=== PATIENT | female | born 1990 | race Caucasian/White ===

== ENCOUNTER 2022-11-07 14:38 | Emergency (ER) | payer MEDICAID, OTHER ==
[~2022-11-07] VITALS: Ht 170.2 cm; Wt 117.0 kg
[2022-11-07 16:10] LABS: Basophils # (auto) 0.1 10 ^3/uL (0-0.2); Basophils % (auto) 0.5 % (0.0-2.0); Eosinophils # (auto) 0.3 10 ^3/uL (0-0.8); Eosinophils % (auto) 2.8 % (0.0-7.0); Hematocrit 41.6 % (36.0-46.0); Hemoglobin 13.8 g/dL (12.2-16.2); Lymphocytes # (auto) 2.8 10 ^3/uL (0.4-5.4); Lymphocytes % (auto) 24.5 % (10.0-50.0); Mean Corpuscular Hemoglobin 30.5 pg (28.0-32.0); Mean Corpuscular Hgb Conc. 33.2 g/dL (32.0-36.0); Mean Corpuscular Volume 91.8 fL (80.0-100.0); Monocytes # (auto) 0.6 10 ^3/uL (0-1.3); Monocytes % (auto) 5.7 % (0.0-12.0); Neutrophils # (auto) 7.6 10 ^3/uL (1.6-8.6); Neutrophils % (auto) 66.5 % (37.0-80.0); Nucleated Red Blood Cells % 0.1 %; Red Blood Cells 4.54 10^6/uL (4.0-5.20); Red Cell Distribution Width 12.6 % (11.8-14.3); White Blood Cell 11.4 10^3/uL (4.4-10.8)
[2022-11-07 16:28] LABS: Calcium 9.2 mg/dL (8.5-10.1); Potassium 4.1 mmol/L (3.5-5.1)
[2022-11-07 16:31] LABS: Bilirubin, Total 0.4 mg/dL (0.2-1.0); Total Protein 6.6 g/dL (6.4-8.2)
[2022-11-07 18:04] VITALS: BP 125/66
[2022-11-07 20:41] LABS: Urine Bacteria FEW /hpf (None Seen); Urine Blood Negative /uL (Negative); Urine Specific Gravity 1.017 (1.001-1.035); Urine WBC 1 /hpf (0 - 5)
== END 2022-11-07 18:16 | disposition home or self-care (01) ==
LOC: ER 14:38
DX: Z32.01 Encounter for pregnancy test, result positive (principal); R10.2 Pelvic and perineal pain
CPT/HCPCS: 36415; 76801; 80053; 81001; 81025; 84702; 85025

== ENCOUNTER 2023-01-17 05:27 | Emergency (ER) | payer MEDICAID ==
[~2023-01-17] VITALS: Ht 170.2 cm; Wt 118.2 kg
[2023-01-17] MEDS ORDERED: IBUPROFEN 800 MG TAB PO ONE (06:30)
[2023-01-17] MEDS ORDERED: IBUP-1454 PO (07:23)
[2023-01-17] MEDS ORDERED: CYCL-839 PO (07:23)
[2023-01-17 07:31] VITALS: BP 107/51
== END 2023-01-17 07:34 | disposition home or self-care (01) ==
LOC: ER 05:27
DX: O26.892 Other specified pregnancy related conditions, second trimester (principal); M62.838 Other muscle spasm; Z3A.00 Weeks of gestation of pregnancy not specified